=== PATIENT | female | born 1955 | race Caucasian/White ===

== ENCOUNTER 2020-04-30 20:45 | Inpatient (IN) ==
[2020-04-30] MEDS ORDERED: traZODone 50 MG TABLET PO ONE (21:49)
[2020-04-30 22:46] LABS: Basophils % 0.5 %; Eosinophils # 0.1 K/mcL (0.0-0.6); Eosinophils % 1.1 %; Hematocrit 43.8 % (35.3-44.9); Hemoglobin 15.2 g/dL (11.5-15.4); Immature Granulocytes % 0.1 % (0-4); Lymphocytes # 2.2 K/mcL (0.6-4.6); Lymphocytes % 27.1 %; Mean Corpuscular HGB Conc 34.7 g/dL (31.6-35.5); Mean Corpuscular Hemoglobin 31.5 pg (28.0-33.3); Mean Corpuscular Volume 90.7 fL (83.0-100.0); Mean Platelet Volume 9.3 fL (9.4-12.4); Monocytes # 0.8 K/mcL (0.0-1.3); Monocytes % 9.3 %; Platelet Count 234 K/mcL (140-400); Red Blood Count 4.83 M/mcL (3.82-4.97); Red Cell Distribution Width 12.6 % (11.5-14.5); Segmented Neutrophils % 61.9 %; White Blood Count 8.1 K/mcL (4.3-11.1)
[2020-04-30 22:52] LABS: Prothrombin Time 11.6 Seconds (9.4-12.1)
[2020-04-30 22:54] LABS: Activated Partial Thrombo Time 28.6 Seconds (26.0-36.0)
[2020-04-30 23:05] LABS: BUN/Creatinine Ratio 21 (6-26); Blood Urea Nitrogen 18 mg/dL (8-23); Calcium 9.8 mg/dL (8.6-10.3); Carbon Dioxide 23 mEq/L (23-29); Chloride 102 mEq/L (98-107); Glucose 99 mg/dL (70-105); Osmolality,Calculated 284 (280-300); Potassium 3.7 mEq/L (3.5-5.1); Sodium 136 mEq/L (136-145); eGFR For African Americans > 60 (> 60); eGFR For Non-African Americans > 60 (> 60)
[2020-04-30 23:11] LABS: Troponin I 1.48 ng/mL (< 0.04)
[2020-04-30] MEDS ORDERED: *HR* Heparin 5,000 UNIT/ML VIAL IVP PRN ×2 (23:19)
[2020-04-30] MEDS ORDERED: *HR* Heparin 5,000 UNIT/ML VIAL IVP ONE (23:19)
[2020-04-30] MEDS ORDERED: Aspirin 325 MG TABLET PO ONE (23:20)
[2020-04-30] MEDS ORDERED: Heparin 25,000UNIT/250ML 1/2NS 25,000 UNIT/250 ML IV.SOLN IVC SCH (23:30)
[2020-05-01] MEDS ORDERED: Ondansetron 4 MG/2 ML VIAL IVP PRN (01:04)
[2020-05-01] MEDS ORDERED: Naloxone 0.4 MG/ML INJ IVP PRN (01:04)
[2020-05-01 01:30] LABS: Basophils # 0.1 K/mcL (0.0-0.2); Basophils % 0.6 %; Eosinophils # 0.1 K/mcL (0.0-0.6); Hematocrit 41.9 % (35.3-44.9); Hemoglobin 14.7 g/dL (11.5-15.4); Immature Granulocytes % 0.1 % (0-4); Lymphocytes # 1.5 K/mcL (0.6-4.6); Lymphocytes % 18.6 %; Mean Corpuscular HGB Conc 35.1 g/dL (31.6-35.5); Mean Corpuscular Hemoglobin 31.5 pg (28.0-33.3); Mean Corpuscular Volume 89.7 fL (83.0-100.0); Mean Platelet Volume 9.1 fL (9.4-12.4); Monocytes # 0.6 K/mcL (0.0-1.3); Monocytes % 6.7 %; Platelet Count 213 K/mcL (140-400); Red Blood Count 4.67 M/mcL (3.82-4.97); Red Cell Distribution Width 12.7 % (11.5-14.5); White Blood Count 8.2 K/mcL (4.3-11.1)
[2020-05-01 01:44] LABS: INR 1.1; Prothrombin Time 12.5 Seconds (9.4-12.1)
[2020-05-01 01:50] LABS: Heparin anti-factor XA UFH 1.53 IU/mL (0.30-0.70)
[2020-05-01 01:51] LABS: Alanine Aminotransferase 12 Units/L (7-52); Albumin 4.1 g/dL (3.5-5.7); Albumin/Globulin Ratio 1.4 (1.1-2.2); Alkaline Phosphatase 64 Units/L (34-104); Aspartate Amino Transferase 28 Units/L (13-39); BUN/Creatinine Ratio 21 (6-26); Bilirubin,Total 0.7 mg/dL (0.3-1.0); Blood Urea Nitrogen 16 mg/dL (8-23); Calcium 9.3 mg/dL (8.6-10.3); Carbon Dioxide 23 mEq/L (23-29); Chloride 101 mEq/L (98-107); Chol/HDL Ratio 3.7 (0-4.9); Cholesterol 238 mg/dL (< 200); Globulin 2.9 g/dL (2.4-3.5); Glucose 119 mg/dL (70-105); HDL Cholesterol 64 mg/dL (40-59); LDL Cholesterol,Calculated 167 mg/dL (< 100); Magnesium 1.9 mg/dL (1.6-2.6); Osmolality,Calculated 284 (280-300); Potassium 3.3 mEq/L (3.5-5.1); Sodium 136 mEq/L (136-145); Triglycerides 34 mg/dL (< 150); eGFR For African Americans > 60 (> 60); eGFR For Non-African Americans > 60 (> 60)
[2020-05-01 01:55] LABS: Troponin I 1.54 ng/mL (< 0.04)
[2020-05-01] MEDS ORDERED: *HR* LORazepam 2 MG/ML VIAL IVP ONE (04:27)
[2020-05-01] MEDS ORDERED: *HR* Labetalol 20 MG/4 ML SYRINGE IVP PRN (04:30)
[2020-05-01] MEDS ORDERED: Perflutren Lipid Microsphere 1.3 ML in 0.9 % Sodium Chloride 8.7 ML IVP PRN (07:37)
[2020-05-01] MEDS ORDERED: lisinopriL 10 MG TABLET PO SCH (09:00)
[2020-05-01] MEDS ORDERED: clonazePAM 0.5 MG TABLET PO SCH ×2 (09:00→19:00)
[2020-05-01] MEDS: Aspirin Enteric Coated 81 MG Tablet PO SCH (09:54)
[2020-05-01] MEDS: Metoprolol XL (24 HR) Succ 25 MG TAB.ER.24H PO SCH (09:54)
[2020-05-01] MEDS ORDERED: clonazePAM 1 MG TABLET PO SCH (19:00)
[2020-05-01] MEDS: *HR* Labetalol 20 MG/4 ML SYRINGE IVP PRN (19:34)
[2020-05-01] MEDS ORDERED: Acetaminophen 325 MG TABLET PO PRN (20:58)
[2020-05-01] MEDS ORDERED: traZODone 50 MG TABLET PO SCH (21:00)
[2020-05-01] MEDS: Sennosides/Docusate Sodium TABLET PO SCH (21:46)
[2020-05-01] MEDS: Temazepam 15 MG CAPSULE PO PRN (22:14)
[2020-05-02 02:56] LABS: Basophils % 0.6 %; Eosinophils # 0.1 K/mcL (0.0-0.6); Eosinophils % 1.6 %; Hematocrit 39.7 % (35.3-44.9); Hemoglobin 13.3 g/dL (11.5-15.4); Immature Granulocytes % 0.1 % (0-4); Lymphocytes # 2.9 K/mcL (0.6-4.6); Lymphocytes % 43.2 %; Mean Corpuscular HGB Conc 33.5 g/dL (31.6-35.5); Mean Corpuscular Volume 92.5 fL (83.0-100.0); Mean Platelet Volume 9.6 fL (9.4-12.4); Monocytes # 0.6 K/mcL (0.0-1.3); Monocytes % 8.8 %; Neutrophils # 3.1 K/mcL (1.6-8.9); Platelet Count 188 K/mcL (140-400); Red Blood Count 4.29 M/mcL (3.82-4.97); Red Cell Distribution Width 12.9 % (11.5-14.5); Segmented Neutrophils % 45.7 %; White Blood Count 6.7 K/mcL (4.3-11.1)
[2020-05-02 03:10] LABS: Calcium 9.1 mg/dL (8.6-10.3); Magnesium 2.2 mg/dL (1.6-2.6); Potassium 3.6 mEq/L (3.5-5.1)
[2020-05-02 09:43] LABS: Chol/HDL Ratio 3.6 (0-4.9)
[2020-05-02] MEDS ORDERED: Neosporin OINT 15 GM TUBE TP PRN (12:31)
[2020-05-02] MEDS ORDERED: *HR* Heparin 10,000 UNIT/10 ML VIAL ONE (13:23)
[2020-05-02] MEDS ORDERED: Nitroglycerin 1,000 MCG/10 ML VIAL IV ONE (13:24)
[2020-05-02] MEDS ORDERED: ISOVUE-370 200 ML INFUS..BTL ONE (13:24)
[2020-05-02] MEDS ORDERED: Heparin 1,000 UNITS/500 mL 500 ML ONE (13:24)
[2020-05-02] MEDS ORDERED: 0.9 % Sodium Chloride 2,000 ML ONE (13:24)
[2020-05-02] MEDS ORDERED: *HR* FentaNYL (PF) 100 MCG/2 ML VIAL ONE (13:31)
[2020-05-02] MEDS ORDERED: *HR* Midazolam HCl 2 MG/2 ML VIAL ONE (13:31)
[2020-05-02] MEDS: Metoprolol XL (24 HR) Succ 25 MG TAB.ER.24H PO SCH (15:05)
[2020-05-02] MEDS: lisinopriL 20 MG TABLET PO SCH (15:05)
[2020-05-02] MEDS: Aspirin Enteric Coated 81 MG Tablet PO SCH (15:05)
[2020-05-02] MEDS: Sennosides/Docusate Sodium TABLET PO SCH ×2 (15:05→22:24)
[2020-05-02] MEDS: clonazePAM 0.5 MG TABLET PO SCH (19:49)
[2020-05-02] MEDS: traZODone 50 MG TABLET PO SCH (22:24)
[2020-05-03] MEDS: *HR* Labetalol 20 MG/4 ML SYRINGE IVP PRN (03:32)
[2020-05-03 04:07] LABS: Hematocrit 37.7 % (35.3-44.9); Hemoglobin 12.4 g/dL (11.5-15.4)
[2020-05-03 04:11] LABS: BUN/Creatinine Ratio 23 (6-26); Blood Urea Nitrogen 20 mg/dL (8-23); Calcium 8.9 mg/dL (8.6-10.3); Carbon Dioxide 24 mEq/L (23-29); Chloride 107 mEq/L (98-107); Glucose 91 mg/dL (70-105); Magnesium 1.9 mg/dL (1.6-2.6); Osmolality,Calculated 286 (280-300); Phosphorous 3.5 mg/dL (2.7-4.5); Potassium 3.7 mEq/L (3.5-5.1); Sodium 137 mEq/L (136-145); eGFR For African Americans > 60 (> 60); eGFR For Non-African Americans > 60 (> 60)
[2020-05-03] MEDS ORDERED: amLODIPine 5 MG TABLET PO SCH (09:00)
[2020-05-03] MEDS: Metoprolol XL (24 HR) Succ 25 MG TAB.ER.24H PO SCH (09:30)
[2020-05-03] MEDS: Sennosides/Docusate Sodium TABLET PO SCH ×2 (09:30→20:44)
[2020-05-03] MEDS: Acetaminophen 325 MG TABLET PO PRN ×2 (09:31→17:26)
[2020-05-03] MEDS: lisinopriL 20 MG TABLET PO SCH (09:32)
[2020-05-03] MEDS: hydrALAZINE 25 MG TABLET PO SCH (17:26)
[2020-05-03] MEDS: clonazePAM 0.5 MG TABLET PO SCH (20:44)
[2020-05-03] MEDS: traZODone 50 MG TABLET PO SCH (21:28)
[2020-05-03] MEDS: Temazepam 15 MG CAPSULE PO PRN (23:49)
[2020-05-04] MEDS: hydrALAZINE 25 MG TABLET PO SCH ×2 (00:02→11:31)
[2020-05-04 05:17] LABS: Hematocrit 37.9 % (35.3-44.9); Hemoglobin 12.7 g/dL (11.5-15.4)
[2020-05-04 05:33] LABS: BUN/Creatinine Ratio 27 (6-26); Blood Urea Nitrogen 24 mg/dL (8-23); Calcium 9.2 mg/dL (8.6-10.3); Carbon Dioxide 23 mEq/L (23-29); Chloride 104 mEq/L (98-107); Glucose 100 mg/dL (70-105); Magnesium 1.9 mg/dL (1.6-2.6); Osmolality,Calculated 286 (280-300); Phosphorous 3.9 mg/dL (2.7-4.5); Potassium 3.9 mEq/L (3.5-5.1); Sodium 136 mEq/L (136-145); eGFR For African Americans > 60 (> 60); eGFR For Non-African Americans > 60 (> 60)
[2020-05-04] MEDS: Acetaminophen 325 MG TABLET PO PRN ×2 (08:10→17:19)
[2020-05-04] MEDS: amLODIPine 5 MG TABLET PO SCH (08:11)
[2020-05-04] MEDS: Magnesium Oxide 400 MG TABLET PO SCH (08:11)
[2020-05-04] MEDS: lisinopriL 20 MG TABLET PO SCH (08:12)
[2020-05-04] MEDS: Metoprolol XL (24 HR) Succ 25 MG TAB.ER.24H PO SCH (08:12)
[2020-05-04] MEDS: Sennosides/Docusate Sodium TABLET PO SCH ×2 (08:12→22:26)
[2020-05-04] MEDS: carvediloL 6.25 MG TABLET PO SCH ×2 (10:35→17:09)
[2020-05-04] MEDS: traZODone 50 MG TABLET PO SCH (22:26)
[2020-05-04] MEDS: clonazePAM 0.5 MG TABLET PO SCH (22:28)
[2020-05-05 01:31] LABS: Basophils % 0.4 %; Eosinophils # 0.2 K/mcL (0.0-0.6); Eosinophils % 2.6 %; Immature Granulocytes % 0.1 % (0-4); Lymphocytes % 28.8 %; Mean Corpuscular HGB Conc 33.3 g/dL (31.6-35.5); Mean Corpuscular Hemoglobin 31.2 pg (28.0-33.3); Mean Corpuscular Volume 93.5 fL (83.0-100.0); Mean Platelet Volume 9.6 fL (9.4-12.4); Monocytes # 0.7 K/mcL (0.0-1.3); Monocytes % 9.7 %; Platelet Count 177 K/mcL (140-400); Red Blood Count 3.85 M/mcL (3.82-4.97); Red Cell Distribution Width 13.2 % (11.5-14.5); Segmented Neutrophils % 58.4 %; White Blood Count 6.9 K/mcL (4.3-11.1)
[2020-05-05 01:55] LABS: Alanine Aminotransferase 11 Units/L (7-52); Albumin 3.2 g/dL (3.5-5.7); Albumin/Globulin Ratio 1.3 (1.1-2.2); Alkaline Phosphatase 46 Units/L (34-104); Aspartate Amino Transferase 16 Units/L (13-39); BUN/Creatinine Ratio 31 (6-26); Bilirubin,Direct 0.1 mg/dL (0.0-0.2); Bilirubin,Indirect 0.4 mg/dL (0.0-1.0); Bilirubin,Total 0.5 mg/dL (0.3-1.0); Blood Urea Nitrogen 27 mg/dL (8-23); Calcium 8.6 mg/dL (8.6-10.3); Carbon Dioxide 25 mEq/L (23-29); Chloride 106 mEq/L (98-107); Globulin 2.5 g/dL (2.4-3.5); Glucose 101 mg/dL (70-105); Magnesium 1.9 mg/dL (1.6-2.6); Osmolality,Calculated 289 (280-300); Potassium 3.9 mEq/L (3.5-5.1); Sodium 137 mEq/L (136-145); Total Protein 5.7 g/dL (6.4-8.9); eGFR For African Americans > 60 (> 60); eGFR For Non-African Americans > 60 (> 60)
[2020-05-05 07:51] VITALS: BP 166/84
[2020-05-05] MEDS ORDERED: carvediloL 6.25 MG TABLET PO SCH (08:15)
[2020-05-05] MEDS: Sennosides/Docusate Sodium TABLET PO SCH (09:55)
[2020-05-05] MEDS: amLODIPine 5 MG TABLET PO SCH (09:55)
[2020-05-05] MEDS: lisinopriL 20 MG TABLET PO SCH (09:56)
[2020-05-05] MEDS: Magnesium Oxide 400 MG TABLET PO SCH (10:09)
[2020-05-05] MEDS: carvediloL 6.25 MG TABLET PO SCH (10:16)
== END 2020-05-05 13:08 | disposition home or self-care (01) | DRG 281 ==
LOC: 2ANU 20:45 → EMEROOARM 20:45 → SUATTDRO 05-01 00:27 → 2ANU 05-01 00:37 → SUATTDRO 05-02 15:25 → 2ANU 05-02 19:35
PROVIDERS: ADMIT Family Medicine; ATTEND Pharmacist

== ENCOUNTER 2020-05-30 15:46 | Observation (INO) ==
[2020-05-30] MEDS ORDERED: Nitroglycerin 0.4 MG TAB.SUBL SL PRN (16:43)
[2020-05-30] MEDS ORDERED: Aspirin 325 MG TABLET PO ONE (16:43)
[2020-05-30 17:19] LABS: Basophils % 0.7 %; Eosinophils # 0.2 K/mcL (0.0-0.6); Eosinophils % 3.9 %; Hematocrit 41.5 % (35.3-44.9); Hemoglobin 13.9 g/dL (11.5-15.4); Immature Granulocytes % 0.2 % (0-4); Lymphocytes # 1.5 K/mcL (0.6-4.6); Lymphocytes % 35.1 %; Mean Corpuscular HGB Conc 33.5 g/dL (31.6-35.5); Mean Corpuscular Hemoglobin 31.1 pg (28.0-33.3); Mean Corpuscular Volume 92.8 fL (83.0-100.0); Mean Platelet Volume 9.2 fL (9.4-12.4); Monocytes # 0.4 K/mcL (0.0-1.3); Monocytes % 9.5 %; Neutrophils # 2.2 K/mcL (1.6-8.9); Platelet Count 189 K/mcL (140-400); Red Blood Count 4.47 M/mcL (3.82-4.97); Red Cell Distribution Width 12.2 % (11.5-14.5); Segmented Neutrophils % 50.6 %; White Blood Count 4.3 K/mcL (4.3-11.1)
[2020-05-30 17:25] LABS: INR 0.9; Prothrombin Time 10.8 Seconds (9.4-12.1)
[2020-05-30 17:41] LABS: BUN/Creatinine Ratio 21 (6-26); Blood Urea Nitrogen 20 mg/dL (8-23); Calcium 9.3 mg/dL (8.6-10.3); Carbon Dioxide 27 mEq/L (23-29); Chloride 105 mEq/L (98-107); Glucose 122 mg/dL (70-105); Osmolality,Calculated 292 (280-300); Potassium 3.7 mEq/L (3.5-5.1); Sodium 139 mEq/L (136-145); eGFR For African Americans > 60 (> 60); eGFR For Non-African Americans 58 (> 60)
[2020-05-30 17:46] LABS: Troponin I 0.06 ng/mL (< 0.04)
[2020-05-30] MEDS ORDERED: Ondansetron 4 MG/2 ML VIAL IVP PRN (18:00)
[2020-05-30] MEDS ORDERED: Acetaminophen 325 MG TABLET PO PRN (18:00)
[2020-05-30] MEDS ORDERED: Naloxone 0.4 MG/ML INJ IVP PRN (18:00)
[2020-05-30] MEDS ORDERED: Melatonin 3 MG TABLET PO PRN (18:00)
[2020-05-30] MEDS ORDERED: traZODone 50 MG TABLET PO SCH (21:00)
[2020-05-30] MEDS: amLODIPine 5 MG TABLET PO SCH (21:36)
[2020-05-30] MEDS: lisinopriL 10 MG TABLET PO SCH (21:36)
[2020-05-30] MEDS: carvediloL 6.25 MG TABLET PO SCH (21:43)
[2020-05-30] MEDS ORDERED: clonazePAM 0.5 MG TABLET PO SCH (21:45)
[2020-05-31 06:39] VITALS: BP 146/81
[2020-05-31] MEDS ORDERED: Cholecalciferol (D-3) 1,000 UNIT (25MCG) TABLET PO SCH (09:00)
[2020-05-31] MEDS ORDERED: Aspirin 81 MG TAB.CHEW PO SCH (09:00)
[2020-05-31] MEDS ORDERED: FLAXSEED OIL 1000 MG PO SCH (09:00)
[2020-05-31] MEDS: lisinopriL 10 MG TABLET PO SCH (11:02)
[2020-05-31] MEDS: amLODIPine 5 MG TABLET PO SCH (11:03)
[2020-05-31] MEDS: carvediloL 6.25 MG TABLET PO SCH (11:03)
[2020-05-31] MEDS ORDERED: Isosorbide MONOnitrate (24 HR) 30 MG TAB.ER.24H PO SCH (13:00)
[2020-05-31 14:43] LABS: Estimated Average Glucose 94 mg/dl; Hemoglobin A1C 4.9 %
== END 2020-05-31 14:42 | disposition home or self-care (01) ==
LOC: 3BNU 15:46 → EMEROOARM 15:46 → SUATTDRO 18:38 → 3BNU 19:31
PROVIDERS: ADMIT Internal Medicine; ATTEND Internal Medicine